=== PATIENT | female | born 2000 | race Caucasian/White ===

== ENCOUNTER 2020-07-19 04:04 | Inpatient (IN) ==
[2020-07-19] MEDS ORDERED: Naloxone 0.4 MG/ML INJ IVP PRN (04:14)
[2020-07-19] MEDS ORDERED: Famotidine 20 MG/2 ML VIAL IVP PRN (04:14)
[2020-07-19] MEDS ORDERED: Metoclopramide 10 MG/2 ML VIAL IVP PRN (04:14)
[2020-07-19] MEDS ORDERED: Lidocaine 1% 20 ML MDV INFILT PRN (04:14)
[2020-07-19] MEDS ORDERED: Ringers Solution, Lactated 1,000 ML IVC SCH (04:15)
[2020-07-19] MEDS ORDERED: miSOPROStoL 25 MCG TABLET PO PRN (04:15)
[2020-07-19] MEDS ORDERED: Famotidine 20 MG/2 ML VIAL IVP ONE (04:49)
[2020-07-19] MEDS ORDERED: Ondansetron 4 MG/2 ML VIAL IVP PRN (04:52)
[2020-07-19 05:32] LABS: Basophils % 0.2 %; Eosinophils # 0.2 K/mcL (0.0-0.6); Eosinophils % 1.5 %; Hematocrit 30.3 % (35.3-44.9); Hemoglobin 9.9 g/dL (11.5-15.4); Immature Granulocytes % 0.7 % (0-4); Lymphocytes # 2.5 K/mcL (0.6-4.6); Lymphocytes % 20.7 %; Mean Corpuscular HGB Conc 32.7 g/dL (31.6-35.5); Mean Corpuscular Hemoglobin 29.5 pg (28.0-33.3); Mean Corpuscular Volume 90.2 fL (83.0-100.0); Mean Platelet Volume 11.2 fL (9.4-12.4); Monocytes # 1.3 K/mcL (0.0-1.3); Monocytes % 10.5 %; Platelet Count 261 K/mcL (140-400); Red Blood Count 3.36 M/mcL (3.82-4.97); Red Cell Distribution Width 13.4 % (11.5-14.5); Segmented Neutrophils % 66.4 %; White Blood Count 12.1 K/mcL (4.3-11.1)
[2020-07-19 05:42] LABS: Amphetamine Screen,Urine Negative ng/mL (Cutoff=1000); Barbiturate Screen,Urine Negative ng/mL (Cutoff=200); Benzodiazepines Screen,Urine Negative ng/mL (Cutoff=200); Cannabinoid Screen,Urine Positive ng/mL (Cutoff = 50); Cocaine Screen,Urine Negative ng/mL (Cutoff= 300); Opiate Screen,Urine Negative ng/mL (Cutoff=300); Phencyclidine Screen,Urine Negative ng/mL (Cutoff=25)
[2020-07-19] MEDS ORDERED: *HR* FentaNYL (PF) 100 MCG/2 ML VIAL EP ONE (05:57)
[2020-07-19] MEDS ORDERED: EPHEDrine 50 MG/ML VIAL IVP PRN (05:57)
[2020-07-19] MEDS ORDERED: Ropivacaine/PF 0.2% 20 ML VIAL EP ONE (05:57)
[2020-07-19] MEDS ORDERED: Epidural Premix (fent/bupiv) 110 ML EP SCH (06:00)
[2020-07-19] MEDS ORDERED: Ropivacaine/PF 0.2% 20 ML VIAL ONE (07:37)
[2020-07-19] MEDS ORDERED: *HR* FentaNYL (PF) 100 MCG/2 ML VIAL ONE (07:37)
== END 2020-07-19 11:58 | disposition home or self-care (01) | DRG 566 ==
LOC: 1NENULAB 04:04
PROVIDERS: ADMIT Student in an Organized Health Care Education/Training Program; ATTEND Student in an Organized Health Care Education/Training Program

== ENCOUNTER 2020-07-24 08:08 | Inpatient (IN) ==
[2020-07-24] MEDS ORDERED: Naloxone 0.4 MG/ML INJ IVP PRN (08:31)
[2020-07-24] MEDS ORDERED: Metoclopramide 10 MG/2 ML VIAL IVP PRN (08:31)
[2020-07-24] MEDS ORDERED: *HR* FentaNYL (PF) 100 MCG/2 ML VIAL IVP PRN (08:31)
[2020-07-24] MEDS ORDERED: miSOPROStoL 25 MCG TABLET PO PRN (08:31)
[2020-07-24] MEDS ORDERED: Famotidine 20 MG/2 ML VIAL IVP PRN (08:31)
[2020-07-24] MEDS ORDERED: Ondansetron 4 MG/2 ML VIAL IVP PRN (08:31)
[2020-07-24] MEDS ORDERED: Oxytocin 20 units/ LR 1000 mL 20 UNIT/1,000 ML BAG IVC SCH (08:45)
[2020-07-24] MEDS ORDERED: Ringers Solution, Lactated 1,000 ML IVC SCH (08:45)
[2020-07-24 09:23] LABS: Basophils % 0.2 %; Eosinophils # 0.2 K/mcL (0.0-0.6); Hematocrit 29.1 % (35.3-44.9); Hemoglobin 9.5 g/dL (11.5-15.4); Immature Granulocytes % 0.5 % (0-4); Lymphocytes # 2.1 K/mcL (0.6-4.6); Lymphocytes % 24.1 %; Mean Corpuscular HGB Conc 32.6 g/dL (31.6-35.5); Mean Corpuscular Hemoglobin 29.9 pg (28.0-33.3); Mean Corpuscular Volume 91.5 fL (83.0-100.0); Mean Platelet Volume 11.3 fL (9.4-12.4); Monocytes # 0.9 K/mcL (0.0-1.3); Monocytes % 9.8 %; Neutrophils # 5.6 K/mcL (1.6-8.9); Platelet Count 208 K/mcL (140-400); Red Blood Count 3.18 M/mcL (3.82-4.97); Red Cell Distribution Width 13.5 % (11.5-14.5); Segmented Neutrophils % 63.4 %; White Blood Count 8.8 K/mcL (4.3-11.1)
[2020-07-24 09:24] LABS: Amphetamine Screen,Urine Negative ng/mL (Cutoff=1000); Barbiturate Screen,Urine Negative ng/mL (Cutoff=200); Benzodiazepines Screen,Urine Negative ng/mL (Cutoff=300)
[2020-07-24 09:26] LABS: Cannabinoid Screen,Urine Positive ng/mL (Cutoff = 50); Cocaine Screen,Urine Negative ng/mL (Cutoff= 300); Opiate Screen,Urine Negative ng/mL (Cutoff=300); Phencyclidine Screen,Urine Negative ng/mL (Cutoff=25)
== END 2020-07-24 11:10 | disposition home or self-care (01) | DRG 955 ==
LOC: 1NENULAB 08:08
PROVIDERS: ADMIT Student in an Organized Health Care Education/Training Program; ATTEND Student in an Organized Health Care Education/Training Program

== ENCOUNTER 2020-08-02 00:17 | Inpatient (IN) ==
[2020-08-02] MEDS ORDERED: Naloxone 0.4 MG/ML INJ IVP PRN (00:23)
[2020-08-02] MEDS ORDERED: Lidocaine 1% 20 ML MDV ID PRN (00:23)
[2020-08-02] MEDS ORDERED: Metoclopramide 10 MG/2 ML VIAL IVP PRN (00:23)
[2020-08-02] MEDS ORDERED: Ondansetron 4 MG/2 ML VIAL IVP PRN (00:23)
[2020-08-02] MEDS ORDERED: Azithromycin 500 MG in 0.9 % Sodium Chloride 250 ML IVPB ONE (00:23)
[2020-08-02] MEDS ORDERED: *HR* FentaNYL (PF) 100 MCG/2 ML VIAL IVP PRN (00:23)
[2020-08-02] MEDS ORDERED: Famotidine 20 MG/2 ML VIAL IVP PRN (00:23)
[2020-08-02 00:52] LABS: Basophils % 0.3 %; Eosinophils # 0.2 K/mcL (0.0-0.6); Hematocrit 30.3 % (35.3-44.9); Hemoglobin 9.6 g/dL (11.5-15.4); Immature Granulocytes % 0.7 % (0-4); Lymphocytes # 2.1 K/mcL (0.6-4.6); Lymphocytes % 24.6 %; Mean Corpuscular HGB Conc 31.7 g/dL (31.6-35.5); Mean Corpuscular Hemoglobin 28.7 pg (28.0-33.3); Mean Corpuscular Volume 90.7 fL (83.0-100.0); Mean Platelet Volume 11.5 fL (9.4-12.4); Monocytes % 11.2 %; Neutrophils # 5.3 K/mcL (1.6-8.9); Platelet Count 272 K/mcL (140-400); Red Blood Count 3.34 M/mcL (3.82-4.97); Red Cell Distribution Width 13.6 % (11.5-14.5); Segmented Neutrophils % 61.2 %; White Blood Count 8.6 K/mcL (4.3-11.1)
[2020-08-02 01:02] LABS: Amphetamine Screen,Urine Negative ng/mL (Cutoff=1000); Barbiturate Screen,Urine Negative ng/mL (Cutoff=200); Benzodiazepines Screen,Urine Negative ng/mL (Cutoff=200); Cannabinoid Screen,Urine Positive ng/mL (Cutoff = 50); Cocaine Screen,Urine Negative ng/mL (Cutoff= 300); Opiate Screen,Urine Negative ng/mL (Cutoff=300); Phencyclidine Screen,Urine Negative ng/mL (Cutoff=25)
[2020-08-02] MEDS: miSOPROStoL 25 MCG TABLET PO PRN ×2 (01:51→06:10)
[2020-08-02] MEDS ORDERED: EPHEDrine 50 MG/ML VIAL IVP PRN (07:01)
[2020-08-02] MEDS: Ringers Solution, Lactated 1,000 ML IVC SCH ×3 (09:03→17:57)
[2020-08-02] MEDS ORDERED: Oxytocin 20 units/ LR 1000 mL 20 UNIT/1,000 ML BAG IVC SCH (10:15)
[2020-08-02] MEDS: Epidural Premix (fent/bupiv) 110 ML EP SCH (18:33)
[2020-08-03] MEDS ORDERED: Ondansetron 4 MG/2 ML VIAL IVP PRN ×3 (02:00→16:00)
[2020-08-03] MEDS: Epidural Premix (fent/bupiv) 110 ML EP SCH ×2 (02:17→09:34)
[2020-08-03] MEDS: Ringers Solution, Lactated 1,000 ML IVC SCH ×2 (02:24→09:36)
[2020-08-03] MEDS ORDERED: *HR* Ropivacaine/PF 0.5% 20 ML VIAL ONE (02:39)
[2020-08-03] MEDS ORDERED: *HR* FentaNYL (PF) 100 MCG/2 ML VIAL ONE ×3 (02:39→12:05)
[2020-08-03] MEDS: Gentamicin 90 MG in 0.9 % Sodium Chloride 100 ML IVPB SCH ×3 (07:27→19:52)
[2020-08-03] MEDS ORDERED: Mag Hydrox/Al Hydrox/Simeth 30 ML UDC PO PRN (07:56)
[2020-08-03] MEDS ORDERED: Ampicillin 2 GM in 0.9 % Sodium Chloride Mini Bag 100 ML IVPB SCH (12:00)
[2020-08-03] MEDS ORDERED: Oxytocin 20 units/ LR 1000 mL 20 UNIT/1,000 ML BAG IVC ONE (12:03)
[2020-08-03] MEDS ORDERED: Chloroprocaine/PF 20 ML VIAL INFILT ONE ×2 (12:05→12:31)
[2020-08-03] MEDS ORDERED: ceFAZolin 2,000 MG in 0.9 % Sodium Chloride 100 ML IVPB STA (12:05)
[2020-08-03] MEDS ORDERED: *HR* Morphine Sulfate/PF 10 MG/10 ML AMPUL ONE (12:05)
[2020-08-03] MEDS ORDERED: Acetaminophen IV 1,000 MG/100 ML INFUS..BTL ONE (12:36)
[2020-08-03] MEDS ORDERED: *HR* OxyCODONE Immed Rel 5 MG TABLET PO PRN (12:36)
[2020-08-03] MEDS: *HR* HYDROmorphone (PF) 1 MG/ML SYRINGE IVP PRN ×2 (14:58→15:25)
[2020-08-03] MEDS ORDERED: Oxytocin 20 units/ LR 1000 mL 20 UNIT/1,000 ML BAG IVC SCH (16:00)
[2020-08-03] MEDS ORDERED: Rho Immune Globulin 1,500 UNIT SYRINGE IM ONE (16:00)
[2020-08-03] MEDS ORDERED: Simethicone 80 MG TAB.CHEW PO PRN (16:00)
[2020-08-03] MEDS ORDERED: Sennosides 8.6 MG TABLET PO PRN (16:00)
[2020-08-03] MEDS ORDERED: Metoclopramide 10 MG/2 ML VIAL IVP PRN (16:00)
[2020-08-03] MEDS: *HR* OxyCODONE/APAP 5/325 TABLET PO PRN (21:49)
[2020-08-04] MEDS: Ampicillin 2 GM in 0.9 % Sodium Chloride Mini Bag 100 ML IVPB SCH ×4 (00:18→15:30)
[2020-08-04] MEDS: Clindamycin 900 MG/50 ML 900 MG/50 ML IV.SOLN IVPB SCH ×2 (00:20→14:06)
[2020-08-04] MEDS: Gentamicin 90 MG in 0.9 % Sodium Chloride 100 ML IVPB SCH ×2 (03:59→13:04)
[2020-08-04] MEDS: *HR* OxyCODONE/APAP 10/325 TABLET PO PRN (04:20)
[2020-08-04 06:32] LABS: Hematocrit 23.7 % (35.3-44.9); Mean Corpuscular HGB Conc 32.1 g/dL (31.6-35.5); Mean Corpuscular Hemoglobin 28.9 pg (28.0-33.3); Mean Corpuscular Volume 90.1 fL (83.0-100.0); Mean Platelet Volume 11.4 fL (9.4-12.4); Platelet Count 220 K/mcL (140-400); Red Blood Count 2.63 M/mcL (3.82-4.97)
[2020-08-04 06:41] LABS: Hemoglobin 7.6 g/dL (11.5-15.4)
[2020-08-04 06:51] LABS: eGFR For African Americans > 60 (> 60); eGFR For Non-African Americans > 60 (> 60)
[2020-08-04 07:03] LABS: Lymphocytes # 3.6 K/mcL (0.6-4.6); Monocytes # 0.8 K/mcL (0.0-1.3); Neutrophils # 15.6 K/mcL (1.6-8.9); Platelet Estimate Normal (Normal); Reactive Lymphocytes Present (Not Present)
[2020-08-04] MEDS: *HR* OxyCODONE/APAP 5/325 TABLET PO PRN ×4 (08:32→21:35)
[2020-08-04] MEDS: Ibuprofen 600 MG TABLET PO PRN ×2 (08:32→14:41)
[2020-08-04] MEDS ORDERED: Prenatal Vit/FA 1 EACH TABLET PO SCH (09:00)
[2020-08-04] MEDS ORDERED: Ringers Solution, Lactated 500 ML ONE (09:22)
[2020-08-04] MEDS ORDERED: 0.9 % Sodium Chloride 500 ML ONE (16:12)
[2020-08-04] MEDS ORDERED: Benzocaine/Menthol 56 GM AEROSOL SPRAY TP ONE (16:44)
[2020-08-04] MEDS ORDERED: Azithromycin 250 MG TABLET PO ONE (18:13)
[2020-08-04] MEDS ORDERED: Ondansetron ODT 4 MG TAB.RAPDIS SL PRN (18:15)
[2020-08-04] MEDS: cephALEXin 500 MG CAPSULE PO SCH (20:12)
[2020-08-04] MEDS ORDERED: Gentamicin 90 MG in 0.9 % Sodium Chloride 100 ML IVPB SCH (21:00)
[2020-08-05] MEDS: *HR* OxyCODONE/APAP 5/325 TABLET PO PRN (01:41)
[2020-08-05 04:57] LABS: Basophils # 0.1 K/mcL (0.0-0.2); Basophils % 0.3 %; Eosinophils % 1.3 %; Hematocrit 28.6 % (35.3-44.9); Immature Granulocytes % 1.9 % (0-4); Lymphocytes # 1.8 K/mcL (0.6-4.6); Lymphocytes % 9.4 %; Mean Corpuscular HGB Conc 32.5 g/dL (31.6-35.5); Mean Corpuscular Hemoglobin 28.1 pg (28.0-33.3); Mean Corpuscular Volume 86.4 fL (83.0-100.0); Mean Platelet Volume 10.8 fL (9.4-12.4); Monocytes # 1.1 K/mcL (0.0-1.3); Monocytes % 5.7 %; Neutrophils # 15.3 K/mcL (1.6-8.9); Platelet Count 245 K/mcL (140-400); Red Blood Count 3.31 M/mcL (3.82-4.97); Red Cell Distribution Width 15.9 % (11.5-14.5); Segmented Neutrophils % 81.4 %; White Blood Count 18.8 K/mcL (4.3-11.1)
[2020-08-05 05:02] LABS: Eosinophils # 0.2 K/mcL (0.0-0.6); Hemoglobin 9.3 g/dL (11.5-15.4)
[2020-08-05 05:24] LABS: Platelet Estimate Normal (Normal)
[2020-08-05] MEDS: *HR* OxyCODONE/APAP 10/325 TABLET PO PRN (07:53)
[2020-08-05] MEDS: cephALEXin 500 MG CAPSULE PO SCH (07:53)
[2020-08-05 07:57] VITALS: BP 103/67
[2020-08-05] MEDS ORDERED: Azithromycin 250 MG TABLET PO SCH (09:00)
== END 2020-08-05 12:04 | disposition home or self-care (01) | DRG 540 ==
LOC: 1NENULAB 00:17 → 1NENUOBS 08-03 15:58
PROVIDERS: ADMIT Student in an Organized Health Care Education/Training Program; ATTEND Student in an Organized Health Care Education/Training Program